=== PATIENT | female | born 1995 | race Caucasian/White ===

== ENCOUNTER 2017-02-24 00:10 | Emergency (ER) | payer OTHER ==
[~2017-02-24] VITALS: Ht 162.6 cm; Wt 97.1 kg
[~2017-02-24 00:10] MED LIST: [UNRECOGNIZED DRUG - REMARK]
[2017-02-24 00:30] VITALS: BP 119/57
--- NOTE | 2017-02-24 00:40 | NUR ---
TO ER BED 7
--- NOTE | 2017-02-24 00:43 | NUR ---
21 Y/O F W/C/O R ABD PAIN X 23 DAYS, DENIES ANY FEVER, NV. NO S/S OF DISTRESS NOTED AT THIS MOMENT.
--- NOTE | 2017-02-24 00:52 | NUR ---
Patient being evaluated by physician at bedside.
[2017-02-24] MEDS ORDERED: KETOROLAC 30 MG/ML VIAL IVP ONE (00:55)
[2017-02-24] MEDS ORDERED: ONDANSETRON 4 MG/2 ML VIAL IVP ONE (00:55)
[2017-02-24] MEDS ORDERED: NACL 0.9% 1,000 ML IV ONE (00:55)
[2017-02-24 01:12] LABS: BASOPHILS # (AUTO) 0.5 K/uL (0.00-0.22); BASOPHILS % (AUTO) 4.9 % (0.0-2.0); EOSINOPHILS # (AUTO) 0.1 K/uL (0-0.4); EOSINOPHILS % (AUTO) 1.1 % (0.0-4.0); HEMATOCRIT 45.4 % (36-48); LYMPHOCYTES # (AUTO) 2.9 K/uL (2.5-16.5); LYMPHOCYTES % (AUTO) 26.4 % (20.5-51.1); MEAN CORPUSCULAR HEMOGLOBIN 30 pg (27-31); MEAN CORPUSCULAR HGB CONC 33 g/dL (33-37); MEAN CORPUSCULAR VOLUME 90 fL (80-94); MONOCYTES # (AUTO) 0.8 K/uL (0.8-1.0); MONOCYTES % (AUTO) 7.1 % (1.7-9.3); NEUTROPHILS # (AUTO) 6.8 K/uL (1.8-7.7); NEUTROPHILS % (AUTO) 60.5 % (42.2-75.2); PLATELET COUNT (AUTO) 401 K/uL (140-450); RED BLOOD CELL COUNT(AUTO) 5.06 MIL/uL (4.20-5.40); RED CELL DISTRIBUTION WIDTH 12.1 % (11.6-13.7); WHITE BLOOD COUNT (AUTO) 11.1 K/uL (4.5-11.0)
[2017-02-24 01:12] LABS: APPEARANCE,URINE CLOUDY (CLEAR); BILIRUBIN,URINE NEGATIVE (NEGATIVE); BLOOD, URINE TRACE-L (NEGATIVE); COLOR,URINE ORANGE (YELLOW); LEUKOCYTE ESTERASE ,URINE NEGATIVE (NEGATIVE); NITRITE, URINE POSITIVE (NEGATIVE); PROTEIN,URINE NEGATIVE (NEGATIVE); UGLUCOSE NEGATIVE (NEGATIVE); UROBILINOGEN,URINE 0.2 EU/dL (0.2 - 1)
[2017-02-24 01:24] LABS: BACTERIA,URINE 4+ /HPF (None Seen); RBC,URINE 0-5 (RARE) /HPF (0-5); SQUAMOUS EPITHELIAL CELL,UR 0-3 (FEW) /LPF (0-3 (FEW)); WBC,URINE 0-5 (RARE) /HPF (0-5)
[2017-02-24 01:26] LABS: ANION GAP 10.2 (8-16); CALCIUM 8.9 mg/dL (8.5-10.1); CARBON DIOXIDE 31.8 mmol/L (21-32); CREATININE 0.8 mg/dL (0.6-1.3); TOTAL BILIRUBIN 0.3 mg/dL (0.0-1.0); TOTAL PROTEIN, SERUM 7.5 g/dL (6.4-8.2)
--- NOTE | 2017-02-24 02:14 | NUR ---
PT RESTING IN BED, ASLEEP AWATING FOR RESULTS.
[2017-02-24 03:15] VITALS: BP 109/64
--- NOTE | 2017-02-24 03:16 | NUR ---
Patient discharged with v/s stable. Written and verbal after care instructions given and explained. Patient alert, oriented and verbalized understanding of instructions. Ambulatory with steady gait. All questions addressed prior to discharge. ID band removed. Patient advised to follow up with PMD. Rx of MACROBID, MOTRIN AND ZOFRAN given. Patient educated on indication of medication including possible reaction and side effects. Opportunity to ask questions provided and answered.
== END 2017-02-24 03:16 | disposition home or self-care (01) ==
LOC: MED 00:10
DX: N39.0 Urinary tract infection, site not specified (principal); Z88.0 Allergy status to penicillin
CPT/HCPCS: 36415; 76705; 80053; 81001; 81025; 83690; 84703; 85025; 87086; 96361; 96374; 96375; 99285; J1885; J2405; J7030; Q0092

== ENCOUNTER 2019-03-06 01:42 | Emergency (ER) | payer MEDICAID, OTHER ==
[~2019-03-06] VITALS: Ht 162.6 cm; Wt 86.2 kg
[2019-03-06 01:48] VITALS: BP 139/90
--- NOTE | 2019-03-06 01:48 | NUR ---
TO BED # 07 AMBULATORY.REPORT GIVEN TO DANGELO
[2019-03-06 01:50] VITALS: BP 139/90
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
[2019-03-06] MEDS ORDERED: MORPHINE SULFATE 4 MG/ML SYR IM ONE (02:15)
--- NOTE | 2019-03-06 04:40 | NUR ---
Patient discharged with v/s stable. Written and verbal after care instructions given and explained. Patient alert, oriented and verbalized understanding of instructions. Ambulatory with steady gait. All questions addressed prior to discharge. ID band removed. Patient advised to follow up with PMD. Rx of ACETAMINOPHEN AND IBUPROFEN given. Patient educated on indication of medication including possible reaction and side effects. Opportunity to ask questions provided and answered.
== END 2019-03-06 04:40 | disposition home or self-care (01) ==
LOC: MED 01:42
DX: M25.511 Pain in right shoulder (principal); M25.521 Pain in right elbow; Z88.0 Allergy status to penicillin; Z98.890 Other specified postprocedural states
CPT/HCPCS: 73030; 73080; 96372; 99283; J2270; Q0092

== ENCOUNTER 2022-05-11 13:27 | Emergency (ER) | payer MEDICAID ==
[~2022-05-11] VITALS: Ht 165.1 cm; Wt 97.1 kg
[2022-05-11 13:40] VITALS: BP 119/56
--- NOTE | 2022-05-11 13:45 | NUR ---
PT AMBULATED TO ER BED 8 WITH A STEADY GAIT.
--- NOTE | 2022-05-11 13:50 | NUR ---
26YR OLD FEMALE BIB SELF C/O ABD PAIN X2 MONTHS . PAIN LEVEL 7/10. DENIES V/D. PT STATES PAIN IS A CRAMPING PAIN ON LLQ TO RLQ. PT IS A&OX4. PT IN GOWN AND URINE OBTAINED . SIDE RAILS UP X2 AND BED AT LOWEST POSITION. PCN HTN
--- NOTE | 2022-05-11 13:50 | NUR ---
PT IN GOWN AND URINE OBTAINED
[2022-05-11] MEDS: DICYCLOMINE 10 MG CAP PO ONE (14:11)
[2022-05-11] MEDS: ALUMINUM HYD/MAG/SIMETHICONE 30 ML UDC PO ONE (14:13)
--- NOTE | 2022-05-11 14:22 | NUR ---
PT IS REFUSING MEDICATIONS .
--- NOTE | 2022-05-11 14:27 | NUR ---
DR LOPEZ AWARE OF PATIENTS REFUSAL OF MEDICATIONS.
[2022-05-11 14:29] LABS: BASOPHILS % (AUTO) 0.3 % (0.0-2.0); EOSINOPHILS % (AUTO) 0.5 % (0.0-4.0); HEMOGLOBIN 14.6 g/dL (12.0-16.0); LYMPHOCYTES # (AUTO) 2.6 K/uL (2.5-16.5); LYMPHOCYTES % (AUTO) 29.9 % (20.5-51.1); MEAN CORPUSCULAR HEMOGLOBIN 31 pg (27-31); MEAN CORPUSCULAR HGB CONC 34 g/dL (33-37); MEAN CORPUSCULAR VOLUME 91.1 fL (80-94); MONOCYTES # (AUTO) 0.5 K/uL (0.8-1.0); MONOCYTES % (AUTO) 5.6 % (1.7-9.3); NEUTROPHILS # (AUTO) 5.6 K/uL (1.8-7.7); NEUTROPHILS % (AUTO) 63.7 % (42.2-75.2); PLATELET COUNT (AUTO) 365 K/uL (140-450); RED BLOOD CELL COUNT(AUTO) 4.72 MIL/uL (4.20-5.40); RED CELL DISTRIBUTION WIDTH 13.1 % (11.6-13.7); WHITE BLOOD COUNT (AUTO) 8.7 K/uL (4.8-10.8)
[2022-05-11] MEDS ORDERED: SULF-59 PO (14:33)
[2022-05-11] MEDS ORDERED: IBUP-1842 PO (14:33)
[2022-05-11 14:55] LABS: ANION GAP 10.2 (8-16); CARBON DIOXIDE 28.2 mmol/L (21-32); CREATININE 0.7 mg/dL (0.6-1.3); POTASSIUM 4.4 mmol/L (3.5-5.1); TOTAL BILIRUBIN 0.5 mg/dL (0.0-1.0)
[2022-05-11] MEDS: KETOROLAC 30 MG/ML VIAL IM ONE (15:31)
[2022-05-11] MEDS: BACITRACIN OINT 500 UNITS/GM PKT TP ONE (15:34)
--- NOTE | 2022-05-11 15:35 | NUR ---
BACITRACIN OINT APPLIED TO SUTURE REMOVAL R UPPER EYE
[2022-05-11 15:55] LABS: BILIRUBIN,URINE NEGATIVE (NEGATIVE); BLOOD, URINE NEGATIVE (NEGATIVE); COLOR,URINE YELLOW (YELLOW); LEUKOCYTE ESTERASE ,URINE NEGATIVE (NEGATIVE); NITRITE, URINE POSITIVE (NEGATIVE); UGLUCOSE NEGATIVE (NEGATIVE)
[2022-05-11 15:58] LABS: APPEARANCE,URINE CLOUDY (CLEAR)
[2022-05-11 16:53] VITALS: BP 111/61
--- NOTE | 2022-05-11 16:53 | NUR ---
Patient discharged with v/s stable. Written and verbal after care instructions given and explained. Patient alert, oriented and verbalized understanding of instructions. Ambulatory with steady gait. All questions addressed prior to discharge. ID band removed. Patient advised to follow up with PMD. Rx of MOTRIN BACTRIM given. Patient educated on indication of medication including possible reaction and side effects. Opportunity to ask questions provided and answered.
--- NOTE | 2022-05-11 16:57 | NUR ---
Saturnino reed in [facility] - 05/11/22 at 1657 by [email or web address]
--- NOTE | 2022-05-11 16:57 | NUR ---
The patient's care was reviewed and supervised by Wendy Zapien RN.
== END 2022-05-11 16:53 | disposition home or self-care (01) ==
LOC: MED 13:27
DX: N39.0 Urinary tract infection, site not specified (principal); Z48.02 Encounter for removal of sutures; Z88.0 Allergy status to penicillin; Z79.899 Other long term (current) drug therapy
CPT/HCPCS: 36415; 80053; 81003; 81025; 85025; 96372; 99284; J1885

== ENCOUNTER 2022-05-22 13:54 | Emergency (ER) | payer MEDICAID ==
[~2022-05-22] VITALS: Ht 157.5 cm; Wt 84.4 kg
[~2022-05-22 13:54] MED LIST changes: +IBUP-1842 PO; +SULF-59 PO
[2022-05-22 14:24] VITALS: BP 132/83
[2022-05-22] MEDS ORDERED: NACL 0.9% 1,000 ML IV ONE (15:00)
[2022-05-22] MEDS ORDERED: MORPHINE SULFATE 4 MG/ML SYR IVP ONE (15:00)
[2022-05-22 15:20] LABS: BASOPHILS % (AUTO) 0.3 % (0.0-2.0); EOSINOPHILS # (AUTO) 0.1 K/uL (0-0.4); EOSINOPHILS % (AUTO) 0.5 % (0.0-4.0); HEMATOCRIT 43.5 % (36-48); HEMOGLOBIN 14.5 g/dL (12.0-16.0); LYMPHOCYTES # (AUTO) 2.5 K/uL (2.5-16.5); MEAN CORPUSCULAR HEMOGLOBIN 31 pg (27-31); MEAN CORPUSCULAR HGB CONC 33 g/dL (33-37); MEAN CORPUSCULAR VOLUME 91.7 fL (80-94); MONOCYTES # (AUTO) 0.7 K/uL (0.8-1.0); MONOCYTES % (AUTO) 6.2 % (1.7-9.3); NEUTROPHILS # (AUTO) 7.7 K/uL (1.8-7.7); PLATELET COUNT (AUTO) 407 K/uL (140-450); RED BLOOD CELL COUNT(AUTO) 4.74 MIL/uL (4.20-5.40); RED CELL DISTRIBUTION WIDTH 13.2 % (11.6-13.7); WHITE BLOOD COUNT (AUTO) 11.1 K/uL (4.8-10.8)
--- NOTE | 2022-05-22 15:24 | NUR ---
ultrasound at bedside.
--- NOTE | 2022-05-22 15:44 | NUR ---
26 y/o female bib self for c/o vaginal bleeding x today. Per patient "she felt a pop, peed herself and then bleeding started." Patient states she is . LMP is 04/13/22. Patient has 9/10 pain level to vaginal area. Medical History: HTN ALLERGIES: PENICILLIN
[2022-05-22 15:59] LABS: ALBUMIN 4.2 g/dL (3.4-5.0); ANION GAP 13.5 (8-16); CARBON DIOXIDE 29.2 mmol/L (21-32); CREATININE 0.7 mg/dL (0.6-1.3); POTASSIUM 3.7 mmol/L (3.5-5.1); TOTAL BILIRUBIN 0.8 mg/dL (0.0-1.0)
--- NOTE | 2022-05-22 16:15 | NUR ---
Patient is sitting up on bed, vital signs stable. Respirations even and unlabored. Will continue to monitor.
[2022-05-22 16:43] VITALS: BP 115/73
--- NOTE | 2022-05-22 18:42 | NUR ---
Patient discharged with v/s stable. Patient left without discharge instructions. Ambulatory with steady gait. All questions addressed prior to discharge. Advised to follow up with PMD.
[2022-05-22 18:49] LABS: APPEARANCE,URINE CLEAR (CLEAR); BILIRUBIN,URINE NEGATIVE (NEGATIVE); BLOOD, URINE 1+ (NEGATIVE); COLOR,URINE YELLOW (YELLOW); LEUKOCYTE ESTERASE ,URINE NEGATIVE (NEGATIVE); NITRITE, URINE NEGATIVE (NEGATIVE); UGLUCOSE NEGATIVE (NEGATIVE)
[2022-05-22 19:10] LABS: BARBITURATE, URINE NEGATIVE ng/ml (NEG <=200); BENZODIAZEPINE, URINE NEGATIVE ng/mL (NEG <=200); CANNABINOID, URINE POSITIVE ng/mL (NEG <=50); COCAINE, URINE NEGATIVE ng/mL (NEG <=300); OPIATE, URINE POSITIVE ng/mL (NEG <=2000); PHENCYCLIDINE SCREEN,URINE NEGATIVE ng/mL (NEG <=25)
--- NOTE | 2022-05-22 19:20 | NUR ---
The patient's care was reviewed and supervised by Lurdes Nelson RN.
[2022-05-22 19:22] LABS: RBC,URINE 0-5 /HPF (0-5); WBC,URINE 0-5 /HPF (0-5)
== END 2022-05-22 18:42 | disposition home or self-care (01) ==
LOC: MED 13:54
DX: N93.9 Abnormal uterine and vaginal bleeding, unspecified (principal); Z20.822 Contact with and (suspected) exposure to COVID-19; R74.01 Elevation of levels of liver transaminase levels; F19.10 Other psychoactive substance abuse, uncomplicated
CPT/HCPCS: 36415; 74176; 76817; 80053; 80305; 81001; 81025; 83690; 84702; 85025; 86900; 86901; 87426; 96361; 96374; 99285; J2270; J7030; Q0092

== ENCOUNTER 2022-09-11 18:39 | Emergency (ER) | payer MEDICAID ==
[~2022-09-11] VITALS: Ht 165.1 cm; Wt 81.6 kg
[2022-09-11 19:13] VITALS: BP 109/72
--- NOTE | 2022-09-11 19:24 | NUR ---
PT W/C ASSISTED TO BED 7.
[2022-09-11] MEDS ORDERED: METOCLOPRAMIDE 10 MG/2 ML INJ VIAL IVP ONE (19:50)
[2022-09-11] MEDS ORDERED: NACL 0.9% 1,000 ML IV SCH (19:50)
--- NOTE | 2022-09-11 20:00 | NUR ---
Pt coming from home ambulatory with steady gait. Pt c/o cramping in lower abdomen, + n/v, and vaginal bleeding x 3 days. LMP was 2 months ago. Pt is A&Ox4. VSS. No chest pain and no sob. Skin intact. Allergic to Penicillins. No known medical conditions. Bed in lowest position.
[2022-09-11 20:03] LABS: BASOPHILS % (AUTO) 0.4 % (0.0-2.0); EOSINOPHILS # (AUTO) 0.1 K/uL (0-0.4); EOSINOPHILS % (AUTO) 0.6 % (0.0-4.0); HEMATOCRIT 41.5 % (36-48); HEMOGLOBIN 14.2 g/dL (12.0-16.0); LYMPHOCYTES # (AUTO) 2.8 K/uL (2.5-16.5); LYMPHOCYTES % (AUTO) 27.9 % (20.5-51.1); MEAN CORPUSCULAR HEMOGLOBIN 31 pg (27-31); MEAN CORPUSCULAR HGB CONC 34 g/dL (33-37); MEAN CORPUSCULAR VOLUME 90.8 fL (80-94); MONOCYTES # (AUTO) 0.7 K/uL (0.8-1.0); MONOCYTES % (AUTO) 7.1 % (1.7-9.3); NEUTROPHILS # (AUTO) 6.4 K/uL (1.8-7.7); PLATELET COUNT (AUTO) 339 K/uL (140-450); RED BLOOD CELL COUNT(AUTO) 4.57 MIL/uL (4.20-5.40)
--- NOTE | 2022-09-11 20:03 | NUR ---
20g IV placed on left ac using aseptic technique. 10cc flushed with no infiltration noted. Saline lock.
--- NOTE | 2022-09-11 20:08 | NUR ---
NS initiated running bolus. Pt has no c/o. Pt states she does want to hold off on her metoclopramide med until CT scan is done.
--- NOTE | 2022-09-11 20:20 | NUR ---
Pt states she is unable to provide a urine sample at this time.
[2022-09-11 20:23] LABS: ALBUMIN 3.7 g/dL (3.4-5.0); ANION GAP 12.6 (8-16); CARBON DIOXIDE 27.3 mmol/L (21-32); CREATININE 0.8 mg/dL (0.6-1.3); POTASSIUM 3.9 mmol/L (3.5-5.1); TOTAL BILIRUBIN 0.6 mg/dL (0.0-1.0)
[2022-09-11] MEDS ORDERED: METOCLOPRAMIDE 10 MG/2 ML INJ VIAL ONE (21:05)
--- NOTE | 2022-09-11 21:20 | NUR ---
Dr. Bruce examining patient.
--- NOTE | 2022-09-11 21:22 | NUR ---
Pt to CT via [facility].
--- NOTE | 2022-09-11 21:34 | NUR ---
PT RETURNED FROM [facility]IA [facility]
[2022-09-11] MEDS ORDERED: ONDA-188 PO (22:04)
[2022-09-11 22:59] LABS: APPEARANCE,URINE CLOUDY (CLEAR); BILIRUBIN,URINE NEGATIVE (NEGATIVE); BLOOD, URINE NEGATIVE (NEGATIVE); COLOR,URINE YELLOW (YELLOW); LEUKOCYTE ESTERASE ,URINE NEGATIVE (NEGATIVE); NITRITE, URINE POSITIVE (NEGATIVE); UGLUCOSE NEGATIVE (NEGATIVE)
[2022-09-11 23:18] LABS: RBC,URINE 0-5 /HPF (0-5); WBC,URINE 0-5 /HPF (0-5)
[2022-09-11] MEDS ORDERED: CEPH-588 PO (23:39)
--- NOTE | 2022-09-11 23:52 | NUR ---
Discharged pt and educated pt on discharge instructions. Pt verbalized understanding with no further questions. Pt is A&Ox4. Skin intact. VSS. Ambulatory with steady gait. No chest pain and no sob. Denies n/v. IV removed.
[2022-09-11 23:53] VITALS: BP 115/76
== END 2022-09-11 23:52 | disposition home or self-care (01) ==
LOC: MED 18:39
DX: R11.2 Nausea with vomiting, unspecified (principal); R10.31 Right lower quadrant pain; R10.33 Periumbilical pain; Z79.899 Other long term (current) drug therapy; Z79.1 Long term (current) use of non-steroidal anti-inflammatories (NSAID); Z79.2 Long term (current) use of antibiotics; Z88.0 Allergy status to penicillin
CPT/HCPCS: 36415; 74176; 80053; 81001; 83690; 84702; 85025; 87086; 96361; 96374; 99284; J2765; J7030

== ENCOUNTER 2023-03-22 18:54 | Emergency (ER) | payer MEDICAID ==
[~2023-03-22] VITALS: Ht 162.6 cm; Wt 105.7 kg
[~2023-03-22 18:54] MED LIST changes: +CEPH-588 PO; +ONDA-188 PO
[2023-03-22 19:23] VITALS: BP 102/64
--- NOTE | 2023-03-22 20:01 | NUR ---
Dr. Joyce examining patient.
[2023-03-22 20:04] VITALS: BP 102/64
[2023-03-22] MEDS ORDERED: cephALEXin 500 MG CAP PO ONE (20:10)
[2023-03-22] MEDS ORDERED: levETIRAcetam 500 MG TAB ONE (20:13)
--- NOTE | 2023-03-22 20:16 | NUR ---
Called for X-ray -no show in lobby or outside
--- NOTE | 2023-03-22 20:30 | NUR ---
PATIENT ELOPED FROM FACILITY. DISCHARGE INSTRUCTIONS NOT GIVEN TO PATIENT. DR. Joyce NOTIFIED.
== END 2023-03-22 20:30 | disposition left against medical advice (07) ==
LOC: MED 18:54
DX: L03.115 Cellulitis of right lower limb (principal); Z88.0 Allergy status to penicillin; Z79.899 Other long term (current) drug therapy
CPT/HCPCS: 99281

== ENCOUNTER 2023-05-01 23:45 | Emergency (ER) | payer MEDICAID ==
[~2023-05-01] VITALS: Ht 162.6 cm; Wt 90.7 kg
[2023-05-02 00:01] VITALS: BP 127/87
--- NOTE | 2023-05-02 01:30 | NUR ---
pt left without being seen PATIENT LEFT WITHOUT BEING SEEN BY DR. CHOI. NO FURTHER CARE PROVIDED FOR PATIENT.
--- NOTE | 2023-05-02 01:32 | NUR ---
Pt called by no response.
--- NOTE | 2023-05-02 01:34 | NUR ---
called second time for the DR to be seen but no response.
--- NOTE | 2023-05-02 01:35 | NUR ---
Called third times pt to be seen by with no response
== END 2023-05-02 01:30 | disposition left against medical advice (07) ==
LOC: MED 23:45
DX: M79.645 Pain in left finger(s) (principal); Z53.21 Procedure and treatment not carried out due to patient leaving prior to being seen by health care provider
CPT/HCPCS: 99281

== ENCOUNTER 2023-08-07 16:12 | Emergency (ER) | payer MEDICAID ==
[~2023-08-07] VITALS: Ht 165.1 cm; Wt 90.7 kg
[2023-08-07 16:20] VITALS: BP 116/96; PULSE 119; RESP 18; TEMP 98.3; O2SAT 99
[2023-08-07] MEDS ORDERED: NACL 0.9% 1,000 ML IV SCH (16:55)
[2023-08-07 17:45] VITALS: O2SAT 99
[2023-08-07 17:47] LABS: BASOPHILS # (AUTO) 0.1 K/uL (0.00-0.22); BASOPHILS % (AUTO) 0.7 % (0.0-2.0); EOSINOPHILS % (AUTO) 0.3 % (0.0-4.0); HEMATOCRIT 41.9 % (36-48); HEMOGLOBIN 14.3 g/dL (12.0-16.0); LYMPHOCYTES # (AUTO) 3.1 K/uL (2.5-16.5); LYMPHOCYTES % (AUTO) 27.2 % (20.5-51.1); MEAN CORPUSCULAR HEMOGLOBIN 31 pg (27-31); MEAN CORPUSCULAR HGB CONC 34 g/dL (33-37); MEAN CORPUSCULAR VOLUME 90.9 fL (80-94); MONOCYTES # (AUTO) 0.9 K/uL (0.8-1.0); MONOCYTES % (AUTO) 7.7 % (1.7-9.3); NEUTROPHILS # (AUTO) 7.3 K/uL (1.8-7.7); NEUTROPHILS % (AUTO) 64.1 % (42.2-75.2); PLATELET COUNT (AUTO) 353 K/uL (140-450); RED BLOOD CELL COUNT(AUTO) 4.61 MIL/uL (4.20-5.40); RED CELL DISTRIBUTION WIDTH 13.3 % (11.6-13.7); WHITE BLOOD COUNT (AUTO) 11.4 K/uL (4.8-10.8)
[2023-08-07 18:04] LABS: ALBUMIN 4.1 g/dL (3.4-5.0); ANION GAP 13.1 (8-16); CALCIUM 8.9 mg/dL (8.5-10.1); CARBON DIOXIDE 27.9 mmol/L (21-32); CREATININE 0.8 mg/dL (0.6-1.3); TOTAL BILIRUBIN 0.6 mg/dL (0.0-1.0); TOTAL PROTEIN, SERUM 7.5 g/dL (6.4-8.2)
[2023-08-07] MEDS ORDERED: IBUP-2213 PO (19:19)
[2023-08-07] MEDS ORDERED: NITR100C7 PO (19:19)
[2023-08-07] MEDS ORDERED: ONDA-188 PO (19:19)
== END 2023-08-07 19:35 | disposition home or self-care (01) ==
LOC: MED 16:12
DX: N39.0 Urinary tract infection, site not specified (principal); R11.2 Nausea with vomiting, unspecified; Z88.0 Allergy status to penicillin; Z79.899 Other long term (current) drug therapy
CPT/HCPCS: 36415; 76705; 80053; 81002; 81025; 83690; 85025; 87086; 96360; 99284; J7030; Q0092

== ENCOUNTER 2023-09-08 02:20 | Emergency (ER) | payer MEDICAID ==
[~2023-09-08 02:20] MED LIST changes: +IBUP-2213 PO; +NITR100C7 PO
== END 2023-09-08 03:19 | disposition left against medical advice (07) ==
LOC: MED 02:20
DX: R21 Rash and other nonspecific skin eruption (principal); Z53.21 Procedure and treatment not carried out due to patient leaving prior to being seen by health care provider

== ENCOUNTER 2023-09-30 19:34 | Emergency (ER) | payer MEDICAID ==
[~2023-09-30] VITALS: Ht 162.6 cm; Wt 86.2 kg
[2023-09-30 19:50] VITALS: BP 114/62; PULSE 111; RESP 19; TEMP 97.8; O2SAT 98
== END 2023-09-30 22:01 | disposition left against medical advice (07) ==
LOC: MED 19:34
DX: R10.32 Left lower quadrant pain (principal); L53.9 Erythematous condition, unspecified; R19.04 Left lower quadrant abdominal swelling, mass and lump; Z53.21 Procedure and treatment not carried out due to patient leaving prior to being seen by health care provider
CPT/HCPCS: 99281

== ENCOUNTER 2023-10-31 08:44 | Emergency (ER) | payer MEDICAID ==
[~2023-10-31] VITALS: Ht 162.6 cm; Wt 101.6 kg
[2023-10-31 09:01] VITALS: BP 107/65; PULSE 109; RESP 18; TEMP 97.7; O2SAT 100
[2023-10-31] MEDS ORDERED: KETOROLAC 30 MG/ML VIAL IM ONE (10:35)
[2023-10-31] MEDS ORDERED: KETOROLAC 30 MG/ML VIAL ONE (10:35)
[2023-10-31] MEDS ORDERED: SULF-59 PO (10:51)
[2023-10-31] MEDS ORDERED: IBUP-2213 PO (10:52)
[2023-10-31 10:59] VITALS: BP 107/65; PULSE 109; RESP 18; TEMP 97.7; O2SAT 100
== END 2023-10-31 10:59 | disposition home or self-care (01) ==
LOC: MED 08:44
DX: L03.115 Cellulitis of right lower limb (principal); Z88.0 Allergy status to penicillin; Z79.899 Other long term (current) drug therapy
CPT/HCPCS: 96372; 99284; J1885

== ENCOUNTER 2023-11-06 03:10 | Emergency (ER) | payer MEDICAID ==
[~2023-11-06] VITALS: Ht 162.6 cm; Wt 99.8 kg
[2023-11-06 03:22] VITALS: BP 122/60; PULSE 105; RESP 18; TEMP 98.3; O2SAT 99
[2023-11-06 04:37] VITALS: O2SAT 99
[2023-11-06] MEDS ORDERED: ACET-8905 PO (05:41)
[2023-11-06] MEDS ORDERED: MAG-27 PO (05:41)
[2023-11-06] MEDS: LIDOCAINE/EPI 2% 1:100000 20 ML VIAL INJ ONE (05:47)
== END 2023-11-06 05:34 | disposition home or self-care (01) ==
LOC: MED 03:10
DX: L02.415 Cutaneous abscess of right lower limb (principal); Z79.899 Other long term (current) drug therapy
CPT/HCPCS: 99281; J2001

== ENCOUNTER 2024-01-03 23:49 | Emergency (ER) | payer MEDICAID ==
[~2024-01-03] VITALS: Ht 162.6 cm; Wt 90.7 kg
[~2024-01-03 23:49] MED LIST changes: +ACET-8905 PO; +MAG-27 PO
[2024-01-04 00:09] VITALS: BP 118/87; PULSE 128; RESP 16; TEMP 97.8; O2SAT 99
== END 2024-01-04 02:00 | disposition left against medical advice (07) ==
LOC: MED 23:49
DX: R05.9 Cough, unspecified (principal); R50.9 Fever, unspecified; R51.9 Headache, unspecified; M79.18 Myalgia, other site; R10.9 Unspecified abdominal pain; Z53.21 Procedure and treatment not carried out due to patient leaving prior to being seen by health care provider
CPT/HCPCS: 99281

== ENCOUNTER 2024-05-29 16:13 | Emergency (ER) | payer MEDICAID ==
[~2024-05-29] VITALS: Ht 165.1 cm; Wt 90.7 kg
[2024-05-29 16:22] VITALS: BP 115/73; PULSE 103; RESP 16; TEMP 97.2; O2SAT 100
== END 2024-05-29 18:07 | disposition left against medical advice (07) ==
LOC: MED 16:13
DX: Z03.823 Encounter for observation for suspected inserted (injected) foreign body ruled out (principal); Z79.899 Other long term (current) drug therapy; Z88.0 Allergy status to penicillin
CPT/HCPCS: 99281

== ENCOUNTER 2024-07-04 06:08 | Emergency (ER) | payer MEDICAID ==
[~2024-07-04] VITALS: Ht 162.6 cm; Wt 104.3 kg
[2024-07-04 06:14] VITALS: BP 132/80; PULSE 92; RESP 18; TEMP 98; O2SAT 98
[2024-07-04] MEDS ORDERED: CEFD300C3 PO (06:34)
[2024-07-04 06:45] VITALS: BP 130/77; PULSE 87; RESP 20; TEMP 98; O2SAT 98
[2024-07-04] MEDS ORDERED: IBUP-2218 PO (06:46)
[2024-07-04] MEDS ORDERED: ACET-10509 PO (06:46)
== END 2024-07-04 06:45 | disposition home or self-care (01) ==
LOC: MED 06:08
DX: H66.92 Otitis media, unspecified, left ear (principal); I10 Essential (primary) hypertension; Z79.1 Long term (current) use of non-steroidal anti-inflammatories (NSAID); Z79.899 Other long term (current) drug therapy; Z88.0 Allergy status to penicillin
CPT/HCPCS: 99283

== ENCOUNTER 2024-09-11 19:46 | Emergency (ER) | payer MEDICAID ==
[~2024-09-11] VITALS: Ht 162.6 cm; Wt 90.7 kg
[~2024-09-11 19:46] MED LIST changes: +ACET500T99 PO; +CEFD300C3 PO; +IBUP-2218 PO
[2024-09-11 19:52] VITALS: BP 126/85; PULSE 105; RESP 18; TEMP 97.7; O2SAT 98
[2024-09-11] MEDS: NACL 0.9% 1,000 ML IV ONE (20:47)
[2024-09-11] MEDS ORDERED: KETOROLAC 60 MG/2 ML VIAL IM ONE (21:10)
[2024-09-11] MEDS: KETOROLAC 30 MG/ML VIAL IVP ONE (21:17)
[2024-09-11] MEDS ORDERED: IBUP-2213 PO (21:22)
[2024-09-11 22:02] VITALS: BP 117/71; PULSE 103; RESP 18; TEMP 97.7; O2SAT 100
== END 2024-09-11 22:02 | disposition home or self-care (01) ==
LOC: MED 19:46
DX: S09.90XA Unspecified injury of head, initial encounter (principal); I10 Essential (primary) hypertension; Z79.899 Other long term (current) drug therapy; Z88.0 Allergy status to penicillin; Y04.8XXA Assault by other bodily force, initial encounter; Y93.89 Activity, other specified; Y92.89 Other specified places as the place of occurrence of the external cause; Y99.8 Other external cause status
CPT/HCPCS: 96361; 96374; 99283; J1885; J7030